=== PATIENT | female | born 1985 | race Caucasian/White ===

== ENCOUNTER 2016-12-10 19:18 | Emergency (ER) | payer OTHER ==
[2016-12-10 19:31] VITALS: BP 136/82; PULSE 69; TEMP 97.9; BMI 27.4
[2016-12-10 21:01] LABS: URINE APPEARANCE CLEAR; URINE BILIRUBIN NEGATIVE (NEGATIVE); URINE COLOR LTYELLOW; URINE GLUCOSE (UA) NEGATIVE (NEGATIVE); URINE KETONE NEGATIVE (NEGATIVE); URINE NITRITE NEGATIVE (NEGATIVE); URINE PROTEIN NEGATIVE (NEGATIVE); URINE UROBILINOGEN NEGATIVE E.U./dl (0.2-1.0)
[2016-12-10 21:02] LABS: URINE BLOOD 1+ (NEGATIVE); URINE LEUK ESTERASE 3+ (NEGATIVE)
[2016-12-10 21:04] LABS: URINE MUCUS FEW; URINE RBC 13 /hpf (0-3); URINE WBC 4 /hpf (3-5)
--- NOTE | 2016-12-10 21:35 | PDOC ---
History of Present Illness - General Chief Complaint: Vaginal Sxs Stated Complaint: STOMACH PAIN Time Seen by Provider: 12/10/16 19:29 History Source: Patient Exam Limitations: No Limitations - History of Present Illness Initial Comments: 12/10/16 21:29 not sexual active 31yo female notes redness and irritaion to vaginal area x 1 week; worse post OTC cream vagisil Timing/Duration: reports: getting worse Quality: reports: moderate Abdominal Pain Onset Location: reports: suprapubic Past History - Past Medical History Allergies/Adverse Reactions: Allergies Allergy/AdvReac Type Severity Reaction Status Date / Time No Known Drug Allergies Allergy Verified 12/10/16 19:28 Home Medications: Ambulatory Orders NK [No Known Home Medication] 12/10/16 - Surgical History Abdominal Surgery: Yes (hernia) - Psycho/Social/Smoking Cessation Hx Anxiety: No Suicidal Ideation: No Smoking Status: No Smoking History: Never smoked Number of Cigarettes Smoked Daily: 0 Information on smoking cessation initiated: No Hx Alcohol Use: No Drug/Substance Use Hx: No Substance Use Type: None Review of Systems - Review of Systems Constitutional: No: Chills, Fever, Malaise Respiratory: Yes: Cough Cardiac (ROS): No: Symptoms Reported ABD/GI: No: Symptoms Reported : Yes: Lesions. No: Discharge, Frequency, Testicular Swelling Integumentary: No: Symptoms Reported Neurological: No: Symptoms reported *Physical Exam - Vital Signs Last Vital Signs Temp Pulse Resp BP Pulse Ox 97.9 F 69 14 136/82 98 12/10/16 19:29 12/10/16 19:29 12/10/16 19:29 12/10/16 19:29 12/10/16 19:29 - Physical Exam General Appearance: Yes: Appropriately Dressed. No: Apparent Distress HEENT: negative: TMs Normal, Pharynx Normal Neck: positive: Supple. negative: Tender, Rigid Respiratory/Chest: positive: Lungs Clear Female Pelvic Exam: positive: other (severe redness to external vagianl area; no lesions) Gastrointestinal/Abdominal: positive: Normal Bowel Sounds. negative: Tender ED Treatment Course - ADDITIONAL ORDERS Additional order review: Laboratory Results 12/10/16 20:45 Urine Color Ltyellow Urine Appearance Clear Urine pH 6.0 Ur Specific [place] 1.020 Urine Protein Negative Urine Glucose (UA) Negative Urine Ketones Negative Urine Blood 1+ H Urine Nitrite Negative Urine Bilirubin Negative Urine Urobilinogen Negative Ur Leukocyte Esterase 3+ H Urine RBC 13 Urine WBC 4 Ur Epithelial Cells Rare Urine Mucus Few Urine HCG, Qual Negative Medical Decision Making - Medical Decision Making 12/10/16 21:32 wiill tx UTI anuse steroid ointment now; 1 dose of diflucon *DC/Admit/Observation/Transfer Diagnosis at time of Disposition: Vulvovaginitis UTI (urinary tract infection) Qualifiers: Urinary tract infection type: site unspecified Hematuria presence: without hematuria Qualified Code(s): N39.0 - Urinary tract infection, site not specified - Discharge Dispostion Disposition: HOME Condition at time of disposition: Stable Admit: No - Referrals Referrals: Mynor Ramirez MD [Staff Physician] - - Patient Instructions Additional Instructions: please see STEAK SAUCE MAKER MD next week for follow up
== END 2016-12-10 21:38 | disposition home or self-care (01) ==
LOC: JERFT 19:18
DX: N39.0 Urinary tract infection, site not specified (principal); N76.0 Acute vaginitis
CPT/HCPCS: 81003; 81015; 84703; 87086; 99281-25

== ENCOUNTER 2019-10-12 19:39 | Emergency (ER) | payer OTHER ==
[2019-10-12 19:51] VITALS: BP 123/73; PULSE 75; TEMP 98.1; BMI 26.2
--- NOTE | 2019-10-12 20:36 | PDOC ---
History of Present Illness - General Chief Complaint: Pain, Acute Stated Complaint: BACK PAIN Time Seen by Provider: 10/12/19 19:49 - History of Present Illness Initial Comments: HPI: 29yo F with no reported PMH presenting with dysuria and bilateral flank pain x 1 month. Patient describes the pain as "burning." Does not have a history of frequent UTIs. Reports foul-smelling urine but no hematuria. No urinary frequency or sensation that she cannot empty all the way. No urgency. Saw her primary care physician and was given three days of antibiotics, but does not remember the name of the medication. Last menstrual period was three days ago. Denies fevers, chills, chest pain, or shortness of breath. PCP: Dr. Mckeon (spelling?) on ROS: Constitutional: no fever, no chills HEENT: no throat pain, no dysphagia Cardiovascular: no chest pain, no palpitations Respiratory: no cough, no shortness of breath Gastrointestinal: no abdominal pain, no nausea Genitourinary: +dysuria, +flank pain Musculoskeletal: no myalgia, no arthralgia Skin: no rash, no itching Neurologic: no headache, no weakness PE: General: Awake, alert, and fully oriented, in no acute distress Head: No signs of trauma Eyes: EOMI, sclera anicteric ENT: Moist mucus membranes Neck: Normal ROM, supple Lungs: Lungs clear, Normal breath sounds Cardio: Regular rhythm, S1 and S2 present Abdomen: Soft, nontender, nondistended. No guarding, no rebound, no masses. + bilateral CVA tenderness Extremities: Normal range of motion, Distal pulses present SKIN: Warm, Dry, normal turgor Neurologic: Cranial nerves II through XII grossly intact. Normal speech ED Course/MDM: DDX including but not limited to UTI, ovarian cyst, fibroids, Labs 10/12/19 01:21 negative UA with UTI Rocephin ordered 10/12/19 21:12 CBC WBC 8.9 K/mm3 (4.0-10.0) 10/12/19 21:30 RBC 4.13 M/mm3 (3.60-5.2) 10/12/19 21:30 Hgb 12.6 GM/dL (10.7-15.3) 10/12/19 21:30 Hct 37.9 % (32.4-45.2) 10/12/19 21:30 MCV 91.9 fl (80-96) 10/12/19 21:30 MCH 30.5 pg (25.7-33.7) 10/12/19 21: MCHC 33.2 g/dl (32.0-36.0) 10/12/19 21:30 RDW 13.1 % (11.6-15.6) 10/12/19 21:30 Plt Count 257 K/MM3 (134-434) 10/12/19 21:30 MPV 9.0 fl (7.5-11.1) 10/12/19 21:30 Absolute Neuts (auto) 4.2 K/mm3 (1.5-8.0) 10/12/19 21: Neutrophils % 47.8 % (42.8-82.8) 10/12/19 21:30 Lymphocytes % 40.4 % (8-40) H D 10/12/19 21:30 Monocytes % 9.7 % (3.8-10.2) 10/12/19 21:30 Eosinophils % 1.6 % (0-4.5) 10/12/19 21: Basophils % 0.5 % (0-2.0) 10/12/19 21: Nucleated RBC % 0 % (0-0) 10/12/19 21:30 No leukocytosis CMP Sodium 139 mmol/L (136-145) 10/12/19 21:30 Potassium 4.5 mmol/L (3.5-5.1) 10/12/19 21:30 Chloride 108 mmol/L (98-107) H 10/12/19 21:30 Carbon Dioxide 27 mmol/L (21-32) 10/12/19 21:30 Anion Gap 4 MMOL/L (8-16) L 10/12/19 21:30 BUN 17.3 mg/dL (7-18) 10/12/19 21:30 Creatinine 0.6 mg/dL (0.55-1.3) 10/12/19 21:30 Est GFR (CKD-EPI)AfAm 139.78 10/12/19 21:30 Est GFR (CKD-EPI)NonAf 120.61 10/12/19 21:30 Random Glucose 87 mg/dL (74-106) 10/12/19 21:30 Calcium 8.6 mg/dL (8.5-10.1) 10/12/19 21:30 Total Bilirubin 0.4 mg/dL (0.2-1) 10/12/19 21:30 AST 15 U/L (15-37) 10/12/19 21:30 ALT 19 U/L (13-61) 10/12/19 21:30 Alkaline Phosphatase 62 U/L (45-117) 10/12/19 21:30 Total Protein 6.7 g/dl (6.4-8.2) 10/12/19 21:30 Albumin 3.4 g/dl (3.4-5.0) 10/12/19 21:30 Electrolytes unremarkable Normal Cr POCUS renal without acute pathology: no hydronephrosis bilaterally 10/12/19 22:38 Treated with keflex Prescriptions sent to pharmacy: keflex and Phenazopyridine Return precautions Stable for discharge Past History - Past Medical History Allergies/Adverse Reactions: Allergies Allergy/AdvReac Type Severity Reaction Status Date / Time No Known Drug Allergies Allergy Verified 10/12/19 19:51 Home Medications: Ambulatory Orders Fluconazole [Diflucan -] 150 mg PO ONCE #1 tablet 12/10/16 Hydrocortisone Valerate [Westcort 0.2% Cream -] 1 applic TP BID #1 tube Nitrofurantoin Monohyd/M-Cryst [Macrobid -] 100 mg PO BID #14 capsule 12/10/16 Cephalexin [Keflex] 500 mg PO BID #14 capsule 10/12/19 Phenazopyridine HCl [Pyridium] 200 mg PO TID #6 tablet 10/12/19 COPD: No - Surgical History Abdominal Surgery: Yes (hernia) - Psycho Social/Smoking Cessation Hx Smoking Status: No Smoking History: Never smoked Have you smoked in the past 12 months: No Number of Cigarettes Smoked Daily: 0 Information on smoking cessation initiated: No Hx Alcohol Use: No Drug/Substance Use Hx: No Substance Use Type: None *Physical Exam - Vital Signs Last Vital Signs Temp Pulse Resp BP Pulse Ox 98.1 F 75 16 123/73 100 10/12/19 19:47 10/12/19 19:47 10/12/19 19:47 10/12/19 19:47 10/12/19 19:47 ED Treatment Course - LABORATORY CBC & Chemistry Diagram: 10/12/19 21:30 10/12/19 21:30 Discharge - Discharge Information Problems reviewed: Yes Clinical Impression/Diagnosis: Pyelonephritis UTI (urinary tract infection) Qualifiers: Urinary tract infection type: site unspecified Hematuria presence: with hematuria Qualified Code(s): N39.0 - Urinary tract infection, site not specified Condition: Stable Disposition: HOME - Additional Discharge Information Prescriptions: Cephalexin [Keflex] 500 mg PO BID #14 capsule Phenazopyridine HCl [Pyridium] 200 mg PO TID #6 tablet - Follow up/Referral - Patient Discharge Instructions Patient Printed Discharge Instructions: DI for Urinary Tract Infection (UTI) Additional Instructions: You came into the emergency department for pain when you urinate. Urinalysis shows you have a urinary tract infection. Antibiotics prescription has been sent to your pharmacy. Follow up with your primary care physician within 72 hours to discuss this ED visit and for further evaluation of your symptoms. Your care is not complete until you do so. Call and make an appointment. Immediate medical attention is required if you experience: you develop high fevers, chills, persistent vomiting, stop urinating, or any new or concerning symptoms. If you think you have an emergency, call for medical help right away. - Post Discharge Activity
[2019-10-12 20:50] LABS: EPI CELLS 1.5 /HPF (0-5/HPF); HYALINE CASTS 1 /lpf (0-8); URINE APPEARANCE CLEAR; URINE BACTERIA 5063.7 /hpf (NEGATIVE); URINE BILIRUBIN NEGATIVE (NEGATIVE); URINE COLOR YELLOW; URINE GLUCOSE (UA) NEGATIVE (NEGATIVE); URINE KETONE NEGATIVE (NEGATIVE); URINE LEUK ESTERASE NEGATIVE (NEGATIVE); URINE NITRITE NEGATIVE (NEGATIVE); URINE PROTEIN NEGATIVE (NEGATIVE); URINE RBC 4 /hpf (0-4); URINE UROBILINOGEN 0.2 mg/dL (0.2-1.0); URINE WBC 3 /hpf (0-5)
--- NOTE | 2019-10-12 20:54 | PDOC ---
Attending Attestation - Resident Resident Name: Darling Myers - ED Attending Attestation I have performed the following: I have examined & evaluated the patient, The case was reviewed & discussed with the resident, I agree w/resident's findings & plan, Exceptions are as noted - HPI HPI: 10/12/19 21:56 See resident HPI - Physicial Exam PE: 10/12/19 21:56 Agree with exam as documented by resident - Medical Decision Making 10/12/19 21:56 34F no pmh here with continued symptoms after being evaluated and treated for a UTI a month ago, cannot recall abx Consider failed tx with likely progression to ascending gu infection f/u ua, ucx dispo per clinical course bacteruria, +symptoms will tx with ctx iv, x1 and po keflex strict return instructions dc
[2019-10-12] MEDS ORDERED: CEFTRIAXONE 1,000 MG in DEXTROSE 5%-WATER - 50 ML IVPB ONE (21:16)
[2019-10-12] MEDS ORDERED: CEFTRIAXONE 1 GM/50 ML BAG ONE (21:18)
[2019-10-12 21:49] LABS: BASO % 0.5 % (0-2.0); EOS % 1.6 % (0-4.5); HEMATOCRIT 37.9 % (32.4-45.2); HEMOGLOBIN 12.6 GM/dL (10.7-15.3); LYMPH % 40.4 % (8-40); MCH 30.5 pg (25.7-33.7); MCHC 33.2 g/dl (32.0-36.0); MEAN CELL VOLUME 91.9 fl (80-96); MONO % 9.7 % (3.8-10.2); NEUT % 47.8 % (42.8-82.8); PLATELET COUNT 257 K/MM3 (134-434); RBC 4.13 M/mm3 (3.60-5.2); RDW 13.1 % (11.6-15.6); WHITE BLOOD COUNT 8.9 K/mm3 (4.0-10.0)
[2019-10-12 22:06] LABS: ALBUMIN 3.4 g/dl (3.4-5.0); BILIRUBIN,TOTAL 0.4 mg/dL (0.2-1); BLOOD UREA NITROGEN 17.3 mg/dL (7-18); CALCIUM 8.6 mg/dL (8.5-10.1); CREATININE 0.6 mg/dL (0.55-1.3); POTASSIUM 4.5 mmol/L (3.5-5.1); TOT PROT 6.7 g/dl (6.4-8.2)
== END 2019-10-12 23:31 | disposition home or self-care (01) ==
LOC: JER 19:39
DX: N39.0 Urinary tract infection, site not specified (principal); B96.89 Other specified bacterial agents as the cause of diseases classified elsewhere
CPT/HCPCS: 36415; 80053; 81003; 84703; 85025; 87086; 87186; 99283-25

== ENCOUNTER 2022-05-25 10:55 | Emergency (ER) | payer OTHER ==
[2022-05-25 11:21] VITALS: TEMP 98.2; BMI 26.2
[2022-05-25] MEDS ORDERED: SODIUM CHLORIDE 1,000 ML IV STA (13:15)
[2022-05-25] MEDS ORDERED: METOCLOPRAMIDE HCL INJECTION 10 MG/2 ML VIAL IVPUSH ONE (13:17)
[2022-05-25] MEDS ORDERED: METOCLOPRAMIDE HCL INJECTION 10 MG/2 ML VIAL ONE (13:38)
[2022-05-25 13:51] LABS: BASO % 0.5 % (0-2.0); EOS % 1.6 % (0-4.5); HEMATOCRIT 40.1 % (32.4-45.2); HEMOGLOBIN 13.3 GM/dL (10.7-15.3); LYMPH % 38.3 % (8-40); MCH 30.3 pg (25.7-33.7); MCHC 33.2 g/dl (32.0-36.0); MEAN CELL VOLUME 91.3 fl (80-96); MEAN PLT VOLUME 8.9 fl (7.5-11.1); MONO % 8.5 % (3.8-10.2); NEUT % 51.1 % (42.8-82.8); PLATELET COUNT 230 10^3/uL (134-434); RBC 4.39 M/mm3 (3.60-5.2); RDW 12.8 % (11.6-15.6); WHITE BLOOD COUNT 7.1 K/mm3 (4.0-10.0)
[2022-05-25 13:58] LABS: INR 0.99 (0.83-1.09); PROTHROMBIN TIME (PATIENT) 11.4 SEC (9.7-13.0)
[2022-05-25 14:01] LABS: ACTIVATED PTT 29.3 SECONDS (25.2-36.5)
[2022-05-25 14:11] LABS: ALBUMIN 3.6 g/dl (3.4-5.0); CALCIUM 8.7 mg/dL (8.5-10.1); MAGNESIUM 2.1 mg/dL (1.8-2.4)
[2022-05-25 14:12] LABS: BLOOD UREA NITROGEN 8.2 mg/dL (7-18)
[2022-05-25 14:14] LABS: CREATININE 0.7 mg/dL (0.55-1.3)
[2022-05-25 14:16] LABS: BILIRUBIN,TOTAL 0.8 mg/dL (0.2-1)
[2022-05-25 15:35] VITALS: BP 120/70; PULSE 72; RESP 18
== END 2022-05-25 15:35 | disposition home or self-care (01) ==
LOC: JER 10:55
PROC: 3E033GC Introduction of Other Therapeutic Substance into Peripheral Vein, Percutaneous Approach (ICD-10-PCS; principal; 2022-05-25)
DX: R42 Dizziness and giddiness (principal)
CPT/HCPCS: 0241U-QW; 36415; 70450-TC; 80053; 83735; 84484; 85025; 85379; 85610; 85730; 86850; 86900; 86901; 93005; 93010; 99285-25